=== PATIENT | male | born 1995 | race Caucasian/White ===

== ENCOUNTER 2022-09-28 03:30 | Emergency (ER) | payer OTHER ==
--- OUTSIDE RECORDS SUMMARY | 2022-09-28 03:34 | XMS REPORT | Continuity of Care Document ---
:1995 Author Organization [facility] t Address [address] [place] [address] Care Team Providers Name Role Phone Kalpana Menezes Primary Care Physician AMADOU HERNANDEZ Attending Clinician Unavailable Cristino Perez MD Attending Clinician TARIQ GRADY Attending Clinician Unavailable Tariq Grady MD Attending Clinician Kalpana Menezes Attending Clinician Lab, Ang - Db Attending Clinician Unavailable KALPANA SILVA Attending Clinician Unavailable LIBRA WERNER Attending Clinician Unavailable LIBRA WERNER Admitting Clinician Unavailable Payers Payer Name Policy Type Policy Number Effective Date Expiration Date [facility] [id number] 2021 PPO/POS 00:00:00 Problems Condition Condition Condition Status Onset Resolution Last Treating Co mments Source Name Details Category Date Date Treatment Clinician Date Need for Need for Disease Active 2021-11 Unive rs hepatitis hepatitis 0-10 ity of C C 00:00: [place] screening screening 00 [facility] lindsey test test Branch Need for Need for Disease Active Unive rs vaccinatio vaccinatio 07-29 it y of n n 00:00: [place] [address] Medical Branch Encounter Encounter Disease Active Uni vers to to 07-29 [place] Furuncle Furuncle Disease Active Unive rs 9-21 ity of 00:00: [place] [address] Medical Branch Allergies, Adverse Reactions, Alerts Allergy Allergy Status Severity Reaction(s) Onset Inactive Treating Comm ents Source Name Type Date Date Clinician NO KNOWN Drug Active Univers ALLERGIE Class ity of [facility] Social History Social Habit Start Date Stop Date Quantity Comments Source Exposure to 2022-08-15 2022-08-25 Not sure [facility] SARS-CoV-2 00:00:00 09:10:00 [facility] (event) Branch Tobacco use and 2018-08-01 2018-08-[address] [facility] exposure 00:00[facility]00 [facility] Alcohol intake 2018-08-01 2018-08-01 [facility] (finding) Sex Assigned At [address] [facility] 00:00[facility] Smoking Status Start Date Stop Date Source Never smoker [facility] (LUF/BENJA/SA) Tobacco smoking consumption [facility] Branch Current some day smoker 2018-08-01 00:00:00 [facility] Medications Ordered Filled Start Stop Current Ordering Indication Dosage Frequency Signature Comments Components Source Medication Medication Date Date Medication? Clinician (SIG) Name Name No known 2021-11 No No known Unive rs medications 0-18 medication it y of 14:26: [address] No known 2021-11 No No known Unive rs medications 0-18 medication it y of 14:26: [address] No known 2021-11 No No known Unive rs medications 0-18 medication it y of 14:26: [address] No known 2021-11 No No known Unive rs medications 0-18 medication it y of 14:26: [address] No known 2021-11 No No known Unive rs medications 0-10 medication it y of 08:14: [address] No known 2021-11 No No known Unive rs medications 0-10 medication it y of 08:14: [address] No known 2021-11 No No known Unive rs medications 0-10 medication it y of 08:14: s [address] No known 2021-11 No No known [facility] rs medications 0-10 medication it y of 08:14: s [address] Branch mupirocin 2 2021- Yes [id number] Apply to Univers % ointment 07-29 area(s) 3 ity of 00:00: 04:59 (three) [place] 00 :00 times Medical daily for Branch 14 days. mupirocin 2 2021- Yes [id number] Apply to Univers % ointment 07-29 area(s) 3 ity of 00:00: 04:59 (three) [place] 00 :00 times Medical daily for Branch 14 days. sulfamethox 2021- Yes [id number] 1{tbl} Take 1 Univers azole-trime 07-29 tablet by it y of thoprim 00:00: 04:59 mouth in [place] (BACTRIM 00 :00 the Medical DS) 800-160 morning Branc h mg per and 1 tablet tablet in the evening. Do all this for 7 days. sulfamethox 2021- Yes [id number] 1{tbl} Take 1 Univers azole-trime 07-29 tablet by it y of thoprim 00:00: 04:59 mouth in [place] (BACTRIM 00 :00 the Medical DS) 800-160 morning Branc h mg per and 1 tablet tablet in the evening. Do all this for 7 days. Immunizations Ordered Filled Immunization Date Status Comments [facility] e Immunization Name Name Influenza Virus 2022-07-29 Completed Universit y of Vaccine Quad IM, 00:00:00 [place] Me dical Preserv and ABX Branch Free 6 MO-64 YRS Influenza Virus 2022-07-29 Completed Universit y of Vaccine Quad IM, 00:00:00 [place] Me dical Preserv and ABX Branch Free 6 MO-64 YRS Influenza Virus 2022-07-29 Completed Universit y of Vaccine Quad IM, 00:00:00 [place] Me dical Preserv and ABX Branch Free 6 MO-64 YRS Influenza Virus 2022-07-29 Completed Universit y of Vaccine Quad IM, 00:00:00 [place] Me dical Preserv and ABX Branch Free 6 MO-64 YRS Influenza Virus 2022-07-29 Completed Universit y of Vaccine Quad IM, 00:00:00 [place] Me dical Preserv and ABX Branch Free 6 MO-64 YRS Influenza Virus 2022-07-29 Completed Universit y of Vaccine Quad IM, 00:00:00 [place] Me dical Preserv and ABX Branch Free 6 MO-64 YRS Influenza Virus 2022-07-29 Completed Universit y of Vaccine Quad IM, 00:00:00 [place] Me dical Preserv and ABX Branch Free 6 MO-64 YRS Influenza Virus 2022-07-29 Completed Universit y of Vaccine Quad IM, 00:00:00 [place] Me dical Preserv and ABX Branch Free 6 MO-64 YRS Influenza Virus 2022-07-29 Completed Universit y of Vaccine Quad IM, 00:00:00 [place] Me dical Preserv and ABX Branch Free 6 MO-64 YRS Influenza Virus 2022-07-29 Completed Universit y of Vaccine Quad IM, 00:00:00 [place] Me dical Preserv and ABX Branch Free 6 MO-64 YRS Vital Signs Vital Name Observation Time Observation Value Comments Source Systolic blood 2022-08-17 13:12:00 114 mm[Hg] Univer sity of pressure [facility] Diastolic blood 2022-08-17 13:12:00 78 mm[Hg] Unive rsity of [facility] Heart rate 2022-08-17 13:12:00 77 /min [facility] Body temperature 2022-08-17 13:12:00 36.83 Anusha [facility] Body height 2022-08-17 13:12:00 170.2 cm [facility] Body weight 2022-08-17 13:12:00 113.853 kg [facility] BMI 2022-08-17 13:12:00 39.31 kg/m2 [facility] Oxygen saturation in 2022-08-17 13:12:00 97 /min [facility] Arterial blood by [facility] Pulse oximetry Branch Systolic blood 2022-07-29 15:52:00 114 mm[Hg] Univer sity of pressure [facility] Diastolic blood 2022-07-29 15:52:00 76 mm[Hg] Unive rsity of pressure [facility] Heart rate 2022-07-29 15:52:00 70 /min [facility] Body height 2022-07-29 15:52:00 170.2 cm [facility] Body weight 2022-07-29 15:52:00 113.853 kg [facility] BMI 2022-07-29 15:52:00 39.31 kg/m2 [facility] Oxygen saturation in 2022-07-29 15:52:00 97 /min [facility] Arterial blood by [facility] Pulse oximetry Branch Body Temperature 2018-06-09 20:35:00 98.5 F [facility] (LUF/BENJA/SA) Respiratory Rate 2018-06-09 20:35:00 16 /min [facility] (F/BENJA/SA) O2% BldC Oximetry 2018-06-09 20:35:00 100 % [facility] (LUF/BENJA/SA) BP Systolic 2018-06-09 20:35:00 150 mm[Hg] [facility] (F/BENJA/SA) BP Diastolic 2018-06-09 20:35:00 95 mm[Hg] [facility] (LUF/BENJA/SA) Height 2018-06-09 20:35:00 67 in [facility] (F/BENJA/SA) Weight Measured 2018-06-09 20:35:00 209.99 lbs [facility] (LUF/BENJA/SA) BMI (Body Mass 2018-06-09 20:35:00 32.9 [facility] (F/BENJA/SA) Procedures Procedure Date / Time Performed Performing Clinician Sourc e FLU VACC ([id number]), 2022-07-29 16:06:02 Kalpana Silva [facility] 6 MO-64 YRS, .5ML, Medical Branc h IM, QUAD (FLUCELVAX) Encounters Start End Encounter Admission Attending Care Care Encounter Source Date/Time Date/Time Type Type Clinicians Facility Department ID 2022-09-15 2022-09-15 Outpatient AMADOU PRADO [facility] [id number] Univers 16:00:00 16:00:00 ity [facility] 2022-09-14 2022-09-14 Telephone Chris [facility] [id number] Univers 00:00:00 00:00:00 Cristino DUMONTPEC [id number] it[id number] [id number] [address] [facility] 2022-09-14 2022-09-14 [facility] [id number] Univers 00:00:00 00:00:00 Cristino MULTISPEC [id number] [id number] [id number] [address] [facility] 2022-08-25 2022-08-25 Outpatient R PANCHITO [facility] [id number] Univers 09:30:00 10:22:38 TARIQ mayorga [facility] 2022-08-25 2022-08-25 Office Cristino Perez [facility] [id number] Univers 09:30:00 10:22:38 Visit Tariq Grady 350.1.13.1 0 [id number] [id number] [address] [facility] 2022-08-18 2022-08-18 [facility]phone [facility] [id number] Univers 00:00:00 00:00:00 Kalpana ALICEA [id number] i [place] [id number] Md nayeli PRYOR [facility] Branch [facility] 2022-08-17 2022-08-17 Patient Access Lab, Ang - Db [facility] [id number] Univers 08:30:00 08:45:00 Visit Kalpana Silva 350.1.13.10 ity of [place]AN[place] 4.2.7.2.686 [place] RAFY?BLEA [id number] Md nayeli WILSON [address] MEDICAL OFFICE BUILDING 2022-08-17 2022-08-17 Office Shira [facility] [id number] Univers 08:00:00 08:36:17 Visit Kalpana [facility] [id number] it y of [place] 4.2.7.2.686 [place] RAFY?BLEA [id number] [address] MEDICAL OFFICE BUILDING 2022-08-17 2022-08-17 Outpatient [facility] [id number] Univers 08:30:00 08:30:00 KALPANA mayroga [facility] 2022-07-29 2022-07-29 [facility] [id number] Univers 11:00:00 11:19:52 Visit [facility] [id number] it y of [place] 4.2.7.2.686 [place] RAFY?BLEA [id number] [address] MEDICAL OFFICE [facility] 2022-07-29 2022-07-29 Outpatient Soco [facility] [id number] Univers 11:00:00 11:19:52 KALPANA mayorga [facility] 2018-06-09 2018-06-10 UNSPECALEJANDRO WERNER, [facility] [id number] 19:55:[facility] 01:50:00 Mj TREJO [facility] ke ABDOMINAL [place], [facility] a PAIN [address] [facility] [place] (LUF/MILDRED BRAY, V/[place]) [place] [address] Results Test Description Test Time Test Comments Results Result Comments Source URINALYSIS WITH MICROSCOPIC 2018-06-10 00:36:00 Test Item Value Reference Range Interpretation Comme nts Color (test code = UCOLR) Yellow Clarity (test code = UCLAR) CLEAR Glucose (test code = UGLUC) NEGATIVE NEGATIVE N Bilirubin (test code = UBILI) NEGATIVE NEGATIVE N Ketones (test code = UKET) NEGATIVE NEGATIVE N Specific [place] (test code = USPGR) 1.015 1.005-1.030 A Blood (test code = UBLD) NEGATIVE NEGATIVE N PH (test code = UPH) 6.0 4.5-8.0 A Protein (test code = UPROT) NEGATIVE NEGATIVE N Urobilinogen (test code = U UROB) 0.2 >0.2 N Nitrite (test code = UNITR) NEGATIVE NEGATIVE N Leukocyte Esterase (test code = ULEUK) NEGATIVE NEGATIVE N WBC (test code = WBCUR) None Seen 0-5 A RBC (test code = RBCUR) None Seen 0-5 A Epithial Cells (test code = U EPI) None Seen 0-10 A Mucous (test code = UMUC) None Seen None Seen N Bacteria (test code = UBACT) None Seen None Seen,Trace N [facility]/PELVIS [id number] 23:49:50ER 14 ER 14EXAM:CT Abdomen and Pelvis With Intravenous ContrastCLINICAL HISTORY:23 years old, male; Pain; Abdominal pain; Generalized; Patient HX: Rlq/ruqabdominal pain, diarrhea, n/vTECHNIQUE:Axial computed tomography images of the abdomen and pelvis with intravenouscontrast. All CT scans at this facility use at least one of these doseoptimization techniques: automated exposure control; mA and/or kV adjustmentper patient size (includes targeted exams where dose is matched to clinicalindication); or iterative reconstruction.CONTRAST:80 mL of isovue 300 administered intravenously.COMPARISON:No relevant prior studies available.FINDINGS:Lung bases: Unremarkable. No mass. No consolidation.ABDOMEN:Liver: No acutehepatic abnormality.Gallbladder and bile ducts: Unremarkable. No calcified gallstones. Nobiliary dilatation.Pancreas: Unremarkable.Spleen: Unremarkable. No splenomegaly.Adrenals: Unremarkable. No mass.Kidneys and ureters: Unremarkable. No solid mass. No hydronephrosis.Stomach and bowel: The stomach isunremarkable. No acute small bowelabnormality demonstrated. No inflammation of the colon noted.PELVIS:Appendix: No evidence of acute appendicitis.Bladder: Unremarkable.Reproductive: Unremarkable as visu alized.ABDOMEN and PELVIS:Intraperitoneal space: Unremarkable. No free air. No significant fluidcollection.Bones/joints: No acute fracture. No dislocation.Soft tissues: Unremarkable.Vasculature: Unremarkable. No abdominal aortic aneurysm.Lymph nodes: Unremarkable. No enlarged lymph nodes.IMPRESSION:Noacute abnormality demonstrated in the abdomen and pelvis.This Final report was electronically signedby Grzegorz Duncan MD on 09 Jun 201811:49 PM CDT.Dictated By: GRZEGORZ DUNCANDate: 06/09/2018 23:49[facility], [id number] 22:35:00 Test Item Value Reference Range Interpretation Comments Lipase (test code = LIPA) 116 U/L [id number]-[id number] 22:35:00 Test Item Value Reference Range Interpretation Comments Glucose (test code 85 mg/dl 75-110 = GLU) BUN (test code = 18.0 mg/dl 6.0-17.0 H BUN) Creatinine (test 0.9 mg/dl 0.4-1.2 code = CREA) Sodium (test code = 141 mmol/l 137-145 NA) Potassium (test 4.5 mmol/l 3.5-5.0 code = K) Chloride (test code 103 mmol/l 98-107 = CL) CO2 (test code = 29 mmol/l 22-30 CO2) Calcium (test code 9.7 mg/dl 8.4-10.2 = CALC) T Protein (test 8.3 gm/dl 5.1-8.7 code = TP) Albumin (test code 4.7 gm/dl 3.5-4.6 H = ALB) A/G Ratio (test 1.3 % 1.1-2.2 code = AGRAT) AST (SGOT) (test 39 U/L 11-36 H code = AST) ALT (SGPT) (test 70 U/L 11-40 H code = ALT) Alkaline Phos (test 43 U/L 47-114 L code = ALKP) Total Bilirubin 0.4 mg/dl 0.2-1.2 (test code = TBIL) Globulin (test code 3.6 gm/dl 2.3-3.5 H = GLOBU) Calcium, Corrected 9.1 mg/dl 8.4-10.2 Various f ormulas exist (test code = for corrected s fortino CALCCORR) calcium results , each yielding differ ent values. This co rrected result was base d on the formula: Co rrected Calcium = Serum Calcium + [0.8 * ( 4 - SerumAlbumin)] EGFR if >60 Spanish (test code mL/min/1.73m\\ = EGFRAA) S\\2 EGFR if Non- >60 Estimate d Glomerular Spanish (test code mL/min/1.73m\\ Filtrat ion Rate (eGFR) = EGFRNA) S\\2 Reference Inter vals Decision Points for 18 years and older and average body ma ss: >= 60 Does not exc lude kidney disease. 30 - 59 Suggests mod erate chronic kidney disease and indicates t he need for further investigation including asses sment of proteinuria and cardiovascular factors. < 30 U sually indicates a nee d for referral for assessment and management of c hronic kidney failure. ER 14 ER 14[facility] WITH AUTO [id number] 22:02:00 Test Item Value Reference Range Interpretation Comments WBC (test code = 9.53 10\\S\\3/ul 4.80-10.80 WBC) RBC (test code = 5.39 10\\S\\6/ul 4.70-6.10 RBC) Hemoglobin (test 16.1 gm/dl 14.0-18.0 code = HGB) Hematocrit (test 47.8 % 42.0-50.0 code = HCT) MCV (test code = 88.7 fL 80.0-94.0 MCV) MCH (test code = 29.9 pg 27.0-31.0 MCH) MCHC (test code = 33.7 gm/dl 33.0-37.0 MCHC) RDW (test code = 12.8 % 11.5-14.5 RDWVC) Platelet (test code 324 10\\S\\3/ul 130-400 = PLT) MPV (test code = 10.6 fL 7.4-10.4 A "NOT MEASUR ED" MPV) RESULTS ARE DIS PLAYED WHEN THE INSTRU MENT HAS A SUPPRESSE D OR UNREPORTABLE RE SULT. THIS WILL MOST OFTEN HAPPEN WITH THE MPV WHEN THERE IS A N ABNORMAL PLATEL ET DISTRIBUTION DU E TO A CRITICAL LOW VA LUE OR PLATELET CLUMPI NG. THE RDW MAY BE SUPPRESSED IF T HERE ARE MULTIPLE PE AKS PRESENT ON THE RBC HISTOGRAM. IN T HIS CASE, A MANUAL REVIEW OF THE SLIDE WI LL BE PERFORMED, AND RBC MORPHOLOGY WILL BE NOTED ON THE RE PORT. NE% (test code = 39.8 % 42.0-75.0 L NE) LY% (test code = 47.6 % 13.0-42.0 H LY) MO% (test code = 7.3 % 4.0-14.0 MO) EO% (test code = 4.3 % 1.0-5.0 EO) BA% (test code = 0.7 % 0.0-3.0 BA) IG% (test code = 0.3 % 0.0-0.4 IG%) [facility]
[2022-09-28] MEDS ORDERED: IBUPROFEN 400 MG TAB ONE (04:10)
[2022-09-28 04:59] LABS: SARS-COV-2 RT PCR POSITIVE (NEGATIVE)
--- NOTE | 2022-09-28 05:39 | ER ---
Nurse's Notes [facility] Name: Massimo Alexis Age: 27 yrs Sex: Male : 1995 Arrival Date: 09/28/2022 Time: 03:33 Bed 5 Private MD: Diagnosis: Coronavirus infection, unspecified Presentation: 09/28 03:50 Chief complaint: Patient states: "I haven't been feeling well since Wednesday. Today I tw5 just laid in bed all day. I have been taking tylenol and some cold medication. I have been trying to take Tylenol every 4 hours. I woke up shaking even though my house was warm so I decided to come up here.". Coronavirus screen: Vaccine status: Patient reports being unvaccinated. Ebola Screen: Patient negative for fever greater than or equal to 101.5 degrees Fahrenheit, and additional compatible Ebola Virus Disease symptoms Patient denies exposure to infectious person. Patient denies travel to an Ebola-affected area in the 21 days before illness onset. Initial Sepsis Screen: Does the patient meet any 2 criteria? HR > 90 bpm. Does the patient have a suspected source of infection? No. Patient's initial sepsis screen is negative. Risk Assessment: Do you want to hurt yourself or someone else? Patient reports no desire to harm self or others. Onset of symptoms was September 26, 2022 at 17:00. 03:50 Method Of Arrival: Ambulatory tw5 03:50 Acuity: KRISTEN 4 tw5 Triage Assessment: 03:52 General: Appears in no apparent distress. Behavior is calm, cooperative, appropriate tw5 for age. Pain: Pain currently is 4 out of 10 on a pain scale. Historical: - Allergies: 03:52 No Known Allergies; tw5 - Home Meds: 03:52 None [Active]; tw5 - PMHx: 03:52 None; tw5 - PSHx: 03:52 None; tw5 - Immunization history:: Flu vaccine is up to date. - Social history:: Smoking status: Patient denies any tobacco usage or history of. Screenin:53 Abuse screen: Denies threats or abuse. Denies injuries from another. Nutritional tw5 screening: No deficits noted. Tuberculosis screening: No symptoms or risk factors identified. Fall Risk None identified. Assessment: 03:58 General: Appears in no apparent distress. Behavior is calm, cooperative, appropriate tw5 for age. Neuro: No deficits noted. Cardiovascular:. Cardiovascular: Rhythm is sinus tachycardia. Respiratory: No deficits noted. 05:06 Reassessment: Patient appears in no apparent distress at this time. Patient and/or jb4 family updated on plan of care and expected duration. Pain level reassessed. Patient is alert, oriented x 3, equal unlabored respirations, skin warm/dry/pink. Vital Signs: 03:50 BP 127 / 88; Pulse 136; Resp 20; Temp 99.2; Pulse Ox 100% ; Weight 104.33 kg; Height 5 tw5 ft. 7 in. (170.18 cm); Pain 4/10; 03:58 Pulse 120; Resp 20; Pulse Ox 100% on R/A; tw5 03:50 Body Mass Index 36.02 (104.33 kg, 170.18 cm) tw5 ED Course: 03:33 Patient arrived in ED. jj6 03:36 Debbie Samuels MD is Attending Physician. sd2 03:52 Triage completed. tw5 03:52 Arm band placed on. tw5 03:53 Patient has correct armband on for positive identification. Pulse ox on. NIBP on. Door tw5 closed. Noise minimized. Moved to private room. Warm blanket given. Verbal reassurance given. 03:58 Charlotte Jaime is Primary Nurse. tw 03:58 Awaiting lab results. tw 03:58 COVID swab sent to lab. tw5 03:59 COVID-19/FLU A+B Sent. tw5 05:47 No provider procedures requiring assistance completed. Patient did not have IV access as6 during this emergency room visit. Administered Medications: 04:10 Drug: Ibuprofen 800 mg Route: PO; jb4 05:46 Follow up: Response: No adverse reaction as6 Medication: 03:58 VIS not applicable for this client. tw5 Outcome: 05:38 Discharge ordered by . sd2 05:47 Discharged to home ambulatory. as6 05:47 Condition: stable 05:47 Discharge instructions given to patient, Instructed on discharge instructions, follow up and referral plans. Demonstrated understanding of instructions, follow-up care. 05:47 Patient left the ED. as6 Signatures: Rebel Curran, RN RN [email or web address] Charlotte Jaime tw5 Rosanna Gonzalez jj6 Estrada Valencia, BARBARA RN as6 Debbie Samuels MD MD sd2
--- NOTE | 2022-09-28 05:39 | EDPHYS ---
Physician Documentation [facility] Name: Massimo Alexis Age: 27 yrs Sex: Male : 1995 Arrival Date: 09/28/2022 Time: 03:33 Bed 5 Private MD: ED Physician Debbie Samuels HPI: 09/28 04:03 This 27 yrs old Male presents to ER via Ambulatory with complaints of Fever, General sd2 Weakness. 04:03 27 yo M presents with CC of fever and malaise since Wednesday with occasional improvement sd2 with Tylenol. Reports initially started with throat discomfort which is still present. Denies any known sick contacts. No CP, SOB, vomiting or diarrhea. Reports chills and body aches. . Historical: - Allergies: 03:52 No Known Allergies; tw5 - Home Meds: 03:52 None [Active]; tw5 - PMHx: 03:52 None; tw5 - PSHx: 03:52 None; tw5 - Immunization history:: Flu vaccine is up to date. - Social history:: Smoking status: Patient denies any tobacco usage or history of. ROS: 04:03 Constitutional: Negative for fever, chills, and weight loss. sd2 04:03 Eyes: Negative for injury, pain, redness, and discharge, ENT: Negative for injury, and discharge, Positive for pain Cardiovascular: Negative for chest pain, palpitations, and edema, Respiratory: Negative for shortness of breath, cough, wheezing. Abdomen/GI: Negative for abdominal pain, nausea, vomiting, diarrhea. MS/Extremity: Negative for injury and deformity, Skin: Negative for injury, rash, and discoloration, Neuro: Positive for headache, Negative for numbness and tingling. 04:03 Constitutional: Positive for body aches, chills, fever, malaise. Exam: 04:03 Constitutional: This is a well developed, well nourished patient who is awake, alert, sd2 and in no acute distress. Head/Face: Normocephalic, atraumatic. Eyes: EOMI, normal conjunctiva bilaterally ENT: Nares patent. No nasal discharge, no septal abnormalities noted. Tympanic membranes are normal and external auditory canals are clear. Oropharynx with mild redness, no swelling, or masses, exudates, or evidence of obstruction, uvula midline. Mucous membranes moist. Chest/axilla: Normal chest wall appearance and motion. Nontender with no deformity. Cardiovascular: Regular rate and rhythm with a normal S1 and S2. No gallops, murmurs, or rubs. 2+ distal pulses. Respiratory: Lungs have equal breath sounds bilaterally, clear to auscultation and percussion. No rales, rhonchi or wheezes noted. No increased work of breathing, no retractions or nasal flaring. Abdomen/GI: Soft, non-tender, with normal bowel sounds. No guarding or rebound. No evidence of tenderness throughout. Skin: Warm, dry with normal turgor. Normal color with no rashes, no lesions, and no evidence of cellulitis. MS/ Extremity: Pulses equal, no cyanosis. Neurovascular intact. Full, normal range of motion. Ambulatory without difficulty. Psych: Awake, alert, with orientation to person, place and time. Behavior, mood, and affect are within normal limits. Vital Signs: 03:50 BP 127 / 88; Pulse 136; Resp 20; Temp 99.2; Pulse Ox 100% ; Weight 104.33 kg; Height 5 tw5 ft. 7 in. (170.18 cm); Pain 4/10; 03:58 Pulse 120; Resp 20; Pulse Ox 100% on R/A; tw5 03:50 Body Mass Index 36.02 (104.33 kg, 170.18 cm) tw5 MDM: 03:49 Patient medically screened. sd2 04:03 Differential diagnosis: Differential diagnosis includes but is not limited to: Viral sd2 URI, acute otitis media, acute otitis externa, pneumonia, UTI, COVID, flu, herpangina among others. Data reviewed: vital signs, nurses notes. 05:37 Data reviewed: lab test result(s). Counseling: I had a detailed discussion with the sd2 patient and/or guardian regarding: the historical points, exam findings, and any diagnostic results supporting the discharge/admit diagnosis, lab results, the need for outpatient follow up, to return to the emergency department if symptoms worsen or persist or if there are any questions or concerns that arise at home. ED course: Labs reviewed. Positive for COVID. Advised pt of continued supportive care for symptoms and outpatient follow up as needed. Verbalizes understanding of discharge plan and strict return precautions. . 09/28 03:50 Order name: COVID-19/FLU A+B; Complete Time: 05:07 sd2 09/28 04:03 Order name: Strep; Complete Time: 05:09 sd2 09/28 05:11 Order name: Throat Culture EDMS Administered Medications: 04:10 Drug: Ibuprofen 800 mg Route: PO; jb4 05:46 Follow up: Response: No adverse reaction as6 Disposition Summary: 09/28/22 05:38 Discharge Ordered Location: Home sd2 Problem: new sd2 Symptoms: have improved sd2 Condition: Stable sd2 Diagnosis - Coronavirus infection, unspecified sd2 Followup: sd2 - With: Private Physician - When: As needed - Reason: Recheck today's complaints, Continuance of care, Re-evaluation by your physician Discharge Instructions: - Discharge Summary Sheet sd2 - COVID-19 sd2 - 10 Things You Can Do to Manage Your COVID-19 Symptoms at Home - [facility] sd2 Forms: - Medication Reconciliation Form sd2 - Thank You Letter sd2 - Antibiotic Education sd2 - Prescription Opioid Use sd2 Signatures: Dispatcher [employer] EDRebel Gill, RN RN jb4 Charlotte Jaime tw5 Debbie Samuels MD MD sd2 Estrada Valencia RN as6
[2022-09-28 05:52] VITALS: BP 127/88; TEMP 99.2; O2SAT 100
== END 2022-09-28 05:47 | disposition home or self-care (01) ==
LOC: ER 03:30
DX: U07.1 COVID-19 (principal)
CPT/HCPCS: 87070; 87081; 0240U; 99284